=== PATIENT | female | born 1980 | race Hispanic/Latino ===

== ENCOUNTER 2018-09-19 09:34 | Outpatient (CLI) | payer BC ==
--- NOTE | 2018-09-19 11:17 | ULT ---
RIGHT UPPER QUADRANT ULTRASOUND: 09/19/2018 PROVIDED CLINICAL HISTORY: Elevated LFTs. FINDINGS: The visualized pancreas and IVC appear normal. The liver demonstrates increased echogenicity, compat ible with fatty infiltration. No evidence for mass or intrahepatic biliary ductal dilatation. The c ommon duct is not dilated. The gallbladder demonstrates no stones, wall thickening, or pericholecyst ic fluid. The right kidney demonstrates no hydronephrosis or mass. IMPRESSION: Fatty infiltration of the liver. POS: [facility]
== END 2018-09-19 09:35 | disposition home or self-care (01) ==
LOC: ULT 09:34
PROVIDERS: ATTEND Internal Medicine
DX: R74.0 Nonspecific elevation of levels of transaminase and lactic acid dehydrogenase [LDH] (principal); K76.0 Fatty (change of) liver, not elsewhere classified
CPT/HCPCS: 76705

== ENCOUNTER 2018-09-27 14:34 | Outpatient (CLI) | payer BC | END 2018-09-27 14:35 | disposition home or self-care (01) | LOC: DTY/OP 14:34 | PROVIDERS: ATTEND Internal Medicine | DX: E66.9 Obesity, unspecified (principal); Z68.30 Body mass index [BMI] 30.0-30.9, adult | CPT/HCPCS: 97802 ==

== ENCOUNTER 2021-06-02 07:33 | Outpatient (CLI) | payer OTHER | END 2021-06-02 07:34 | disposition home or self-care (01) | LOC: BICULT 07:33 | PROVIDERS: ATTEND Internal Medicine | DX: R74.01 Elevation of levels of liver transaminase levels (principal); K76.0 Fatty (change of) liver, not elsewhere classified | CPT/HCPCS: 76705 ==